=== PATIENT | male | born 1950 | race Caucasian/White ===

== ENCOUNTER 2017-12-05 10:31 | Emergency (ER) | payer MEDICARE, BC ==
[2017-12-05 10:45] VITALS: BP 123/63
--- NOTE | 2017-12-05 10:50 | EDM.PDOC ---
<Sergo King - Last Filed: 12/05/17 10:49> ED HPI GENERAL MEDICAL PROBLEM - General Chief Complaint: Lower Extremity Injury/Pain Stated Complaint: CUT FOOT FELL DOWNSTAIRS AT HOME Time Seen by Provider: 12/05/17 10:49 Source of Information: Reports: Patient, Old Records, RN, RN Notes Reviewed History Limitations: Reports: No Limitations Right 1-Hallux Pain Score (Numeric/FACES): 3 - Related Data Allergies Allergy/AdvReac Type Severity Reaction Status Date / Time No Known Allergies Allergy Verified 12/05/17 10:38 Home Meds: Home Meds ALPRAZolam [Xanax] 1 mg PO TID 08/27/15 [History] traMADol [Ultram] 50 mg PO Q6H PRN 08/27/15 [History] HYDROmorphone/Bupiv/0.9NaCl/PF [Hydromor-Bupiva 10 Mcg-0.0625%] 7.2 mg 12/05/17 [History] Past Medical History - Past Surgical History Other Musculoskeletal Surgeries/Procedures:: has had numerous joint replacements. Has Morphine pump for chronic pain Social & Family History - Tobacco Use Smoking Status *Q: Never Smoker Second Hand Smoke Exposure: No - Alcohol Use Days Per Week of Alcohol Use: 0 - Recreational Drug Use Recreational Drug Use: No Course - Vital Signs Last Recorded V/S: Last Vital Signs Temp 97.6 F 12/05/17 10:39 Pulse 92 12/05/17 10:39 Resp 16 12/05/17 10:39 BP 123/63 12/05/17 10:39 Pulse Ox 97 12/05/17 10:39 - Orders/Labs/Meds Meds: Medications Discontinued Medications Generic Name Dose Route Start Last Admin Trade Name Freq PRN Reason Stop Dose Admin Bacitracin 1 dose 12/05/17 11:07 12/05/17 11:12 Bacitracin Oint 1 Gm TOP 12/05/17 11:08 1 dose ONETIME ONE Administration Cephalexin 500 mg 12/05/17 11:07 12/05/17 11:12 Keflex PO 12/05/17 11:08 500 mg ONETIME ONE Administration Lidocaine HCl 30 ml 12/05/17 11:06 12/05/17 11:12 Xylocaine-Mpf 1% INJECT 12/05/17 11:07 30 ml ONETIME ONE Administration Departure - Departure Disposition: Home, Self-Care 01 Clinical Impression: Laceration of skin - Discharge Information Forms: ED Department Discharge Additional Instructions: Make appointment with Primary Care Provider (Dr. Donato Turner) in 7 - 10 days for removal of sutures. Keep area clean and dry. Does not need to be covered with dressing at night. Take Cephalexin as prescribed <Nehal Lenz - Last Filed: 12/05/17 12:29> ED HPI GENERAL MEDICAL PROBLEM - History of Present Illness INITIAL COMMENTS - FREE TEXT/NARRATIVE: Patient states he slipped on the carpet in his house and fell backward down 6 stairs. He did not lose consciousness or hit his head. He was able to to walk to the bathroom and run water over the cut to clean it. He has not used soap or hydrogen peroxide to clean the cut. He is concerned about infection that could spread to his prosthetic hips and right knee. 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 He has an implanted Hydromorphine pump for pain control. 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 No Diabetes Mellitus. No allergies. Onset: Today Onset Date: 12/05/17 Onset Time: 08:00 ("This morning" ) Location: Reports: Lower Extremity, Right Quality: Reports: Burning (Peripheral neuropathy. 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 Denies: Fever, Weakness Eyes: Reports: No Symptoms, Glasses. Denies: Blindness Ears: Reports: No Symptoms. Denies: Dizziness, Bloody Discharge Nose: Reports: No Symptoms. Denies: Epistaxis Mouth/Throat: Reports: No Symptoms Respiratory: Reports: No Symptoms. Denies: Wheezing, Cough Cardiovascular: Reports: No Symptoms GI/Abdominal: Reports: No Symptoms Genitourinary: Reports: No Symptoms Musculoskeletal: Reports: No Symptoms, Foot Pain, Joint Pain (prior condition; Bilateral hip, right knee replacement) Skin: Reports: No Symptoms Neurological: Reports: No Symptoms, Pre-Existing Deficit (Bilateral burning peripheral neuropathy ). Denies: Dizziness, Headache Psychiatric: Reports: No Symptoms ED EXAM, GENERAL - Physical Exam Exam: See Below Exam Limited By: No Limitations General Appearance: Alert, WD/WN, No Apparent Distress Ears: Normal External Exam, Normal Canal, Hearing Grossly Normal, Normal TMs Ear Exam: Bilateral Ear: Auricle Normal, Canal Normal, TM normal Nose: Normal Inspection Throat/Mouth: No Airway Compromise Head: Atraumatic, Normocephalic Neck: Normal Inspection Respiratory/Chest: No Respiratory Distress, Lungs Clear, Normal Breath Sounds, No Accessory Muscle Use, Chest Non-Tender Cardiovascular: Normal Peripheral Pulses, Regular Rate, Rhythm, No Edema Peripheral Pulses: 2+: Dorsalis Pedis (L), Dorsalis Pedis (R) Extremities: Normal Inspection, No Pedal Edema, Normal Capillary Refill Neurological: Alert, Oriented Psychiatric: Normal Affect Skin Exam: Warm, Dry ED TRAUMA EXTREMITY PROCEDURES - Laceration/Wound Repair Right Lower Medial Distal Foot Lac/Wound Length In cm: 1.5 (J shape flap of skin ) Appearance: Superficial, Mildly Contaminated (sock fuzz ) Distal NVT: Neuro & Vascular Intact Anesthetic Type: Local Local Anesthesia - Lidocaine (Xylocaine): 1% Plain Skin Prep: Isopropyl Alcohol (Alcohol), Saline, Sterile Drape Saline Irrigation (cc's): 10 Exploration/Debridement/Repair: Minimal Debridement Closed With: Sutures Suture Size: 3-0 # of Sutures: 4 Suture Type: Prolene, Simple Drain Placement: No Sterile Dressing Applied: Other (Nehal Lenz MS3) Tetanus Status Addressed: Yes (tetanus up to date per Patient) Departure - Departure Time of Disposition: 12:24 - Problem List & Annotations (1) Laceration of skin SNOMED Code(s): 942555305 Code(s): [id number] - Status: Acute - Problem List Review Problem List Initiated/Reviewed/Updated: Yes - My Orders Last 24 Hours: Cephalexin written prescription Follow up with PCP in 7 - 10 days for suture removal Discharge to home
[2017-12-05] MEDS ORDERED: Lidocaine 1% 30 ML SDV INJECT ONE (11:06)
[2017-12-05] MEDS ORDERED: Bacitracin Oint 1 GM U/D Packet TOP ONE (11:07)
[2017-12-05] MEDS ORDERED: Cephalexin 500 MG Cap PO ONE (11:07)
== END 2017-12-05 12:36 | disposition home or self-care (01) ==
LOC: DL.ED 10:31
DX: S91.111A Laceration without foreign body of right great toe without damage to nail, initial encounter (principal); W10.9XXA Fall (on) (from) unspecified stairs and steps, initial encounter
CPT/HCPCS: 12001; 99283; A9270

== ENCOUNTER → 2019-01-08 | Outpatient (CLI) | payer MEDICARE, BC ==
[2019-01-08 14:50] LABS: ANION GAP 13.3; CHLORIDE,CL 101 mmol/L (101-111); SODIUM,NA 136 mmol/L (135-145)
== END ==
LOC: DL.LAB 11:11
PROVIDERS: ATTEND Internal Medicine Hematology & Oncology
DX: C18.9 Malignant neoplasm of colon, unspecified (principal); D50.9 Iron deficiency anemia, unspecified
CPT/HCPCS: 36415; 80053; 82728; 83540; 83550; 85025

== ENCOUNTER → 2019-02-13 | Outpatient (CLI) | payer MEDICARE, BC | LOC: DL.CLIN 16:15 | PROVIDERS: ATTEND Nurse Practitioner | DX: E78.5 Hyperlipidemia, unspecified (principal) | CPT/HCPCS: 36415; 80061; 99213; G0439 ==

== ENCOUNTER 2020-08-30 20:13 | Emergency (ER) | payer MEDICARE, BC ==
[2020-08-30 20:20] VITALS: BP 155/73
[2020-08-30] MEDS ORDERED: Iopamidol 612 MG/ML 100 ML Bottle IVPUSH ONE (20:30)
[2020-08-30 20:33] VITALS: PULSE 78
[2020-08-30] MEDS ORDERED: HYDROmorphone 1 MG/ML Syringe IVPUSH ONE (21:04)
[2020-08-30 21:07] LABS: ANION GAP 11.8 mEq/L (7-13); CHLORIDE,CL 100 mmol/L (98-107); SODIUM,NA 139 mmol/L (136-145)
--- NOTE | 2020-08-30 21:36 | CT ---
PROCEDURE INFORMATION: Exam: CT Head Without Contrast Exam date and time: 08/30/2020 8:46 PM Age: 70 years old Clinical indication: Other: Pain, fall from ladder to left side TECHNIQUE: Imaging protocol: Computed tomography of the head without contrast. Radiation optimization: All CT scans at this facility use at least one of these dose optimization techniques: automated exposure control; mA and/or kV adjustment per patient size (includes targeted exams where dose is matched to clinical indication); or iterative reconstruction. COMPARISON: No relevant prior studies available. FINDINGS: Brain: No acute hemorrhage. Unremarkable white matter. No mass effect. Cerebral ventricles: No ventriculomegaly. Bones/joints: Unremarkable. No acute fracture. Paranasal sinuses: Visualized sinuses are unremarkable. No fluid levels. Mastoid air cells: Visualized mastoid air cells are well aerated. Soft tissues: Unremarkable. IMPRESSION: No acute intracranial process.
--- NOTE | 2020-08-30 21:37 | CT ---
PROCEDURE INFORMATION: Exam: CT Cervical Spine Without Contrast Exam date and time: 08/30/2020 8:46 PM Age: 70 years old Clinical indication: Other: Pain, fall from ladder to left side TECHNIQUE: Imaging protocol: Computed tomography images of the cervical spine without contrast. Radiation optimization: All CT scans at this facility use at least one of these dose optimization techniques: automated exposure control; mA and/or kV adjustment per patient size (includes targeted exams where dose is matched to clinical indication); or iterative reconstruction. COMPARISON: No relevant prior studies available. FINDINGS: Bones/joints: No acute fracture. Normal alignment. Discs/Spinal canal/Neural foramina: No spinal stenosis. Soft tissues: Unremarkable. Lungs: Lung apices are normal. IMPRESSION: No acute fracture or dislocation.
--- NOTE | 2020-08-30 22:02 | CT ---
PROCEDURE INFORMATION: Exam: CT Lumbar Spine Without Contrast Exam date and time: 08/30/2020 8:46 PM Age: 70 years old Clinical indication: Other: Pain, fall from ladder to left side TECHNIQUE: Imaging protocol: Computed tomography images of the lumbar spine without contrast. Radiation optimization: All CT scans at this facility use at least one of these dose optimization techniques: automated exposure control; mA and/or kV adjustment per patient size (includes targeted exams where dose is matched to clinical indication); or iterative reconstruction. COMPARISON: No relevant prior studies available. FINDINGS: Vertebrae: No acute fracture. Normal alignment. Discs/Spinal canal/Neural foramina: Degenerative changes result in mild central canal stenosis L4-L5. Soft tissues: Unremarkable. IMPRESSION: No acute findings.
--- NOTE | 2020-08-30 22:02 | CT ---
PROCEDURE INFORMATION: Exam: CT Chest With Contrast; Diagnostic Exam date and time: 08/30/2020 8:46 PM Age: 70 years old Clinical indication: Other: Pain, fall from ladder to left side TECHNIQUE: Imaging protocol: Diagnostic computed tomography of the chest with intravenous contrast. Radiation optimization: All CT scans at this facility use at least one of these dose optimization techniques: automated exposure control; mA and/or kV adjustment per patient size (includes targeted exams where dose is matched to clinical indication); or iterative reconstruction. Contrast material: ISOVUE 300; Contrast volume: 100 ml; Contrast route: INTRAVENOUS (IV); COMPARISON: No relevant prior studies available. FINDINGS: Tubes, catheters and devices: Spinal stimulator wire in place. Lungs: Ground-glass as well as more consolidative opacity in the left lower lobe may represent lung contusion and or adjacent atelectasis/infiltrate. There is an approximate 3.6 cm rounded opacity within the left lower lobe with lucencies within. Somewhat thickened wall. Within the medial right lower lobe there is an approximate 2.7 cm rounded opacity with some central lucency. Pleural space: Tiny left pneumothorax. Small left pleural effusion. Heart: Minimal coronary artery calcification. Aorta: Unremarkable. No aortic aneurysm. Lymph nodes: Unremarkable. No enlarged lymph nodes. Bones/joints: Multiple left rib fractures. Acute minimally displaced fractures involving the left 4th 5th 6 and 7th and 8 ribs. Probable old right rib fracture deformities. Soft tissues: Minimal bilateral gynecomastia. IMPRESSION: 1. Multiple displaced left rib fractures including fractures of the left 4th through 8th ribs.. The left 7th rib fracture is markedly comminuted. 2. Associated small left pneumothorax. 3. Patchy consolidation in the left lower lobe may represent contusion and or underlying atelectasis. There are rounded lung opacities within the left lower lobe and right lower lobe which are somewhat thick walled with areas of lucency within. In the setting of trauma, these may possibly represent posttraumatic change/laceration//traumatic pneumatoceles, however the possibility of underlying inflammatory or malignant processes not excluded. Recommend clinical correlation and short-term follow-up imaging to reassess. PROCEDURE INFORMATION: Exam: CT Abdomen And Pelvis With Contrast Exam date and time: 08/30/2020 8:46 PM Age: 70 years old Clinical indication: Other: Pain, fall from ladder to left side TECHNIQUE: Imaging protocol: Computed tomography of the abdomen and pelvis with intravenous contrast. Radiation optimization: All CT scans at this facility use at least one of these dose optimization techniques: automated exposure control; mA and/or kV adjustment per patient size (includes targeted exams where dose is matched to clinical indication); or iterative reconstruction. Contrast material: ISOVUE 300; Contrast volume: 100 ml; Contrast route: INTRAVENOUS (IV); COMPARISON: No relevant prior studies available. FINDINGS: Tubes, catheters and devices: Spinal stimulator wire identified. Liver: Hepatic steatosis. Gallbladder and bile ducts: The gallbladder is distended with an associated gallstone. Pancreas: Normal. No ductal dilation. Spleen: Normal. No splenomegaly. Adrenal glands: Normal. No mass. Kidneys and ureters: Normal. No hydronephrosis. Stomach and bowel: Unremarkable. No obstruction. No mucosal thickening. Appendix: No evidence of appendicitis. Intraperitoneal space: Unremarkable. No free air. No significant fluid collection. Vasculature: Unremarkable. No abdominal aortic aneurysm. Lymph nodes: Unremarkable. No enlarged lymph nodes. Urinary bladder: Moderate bladder wall thickening. Reproductive: Unremarkable as visualized. Bones/joints: Artifact from bilateral hip arthroplasties limits evaluation of the pelvis. Advanced lumbar spondylosis. There appears to be fusion of the L2 and L3 vertebral bodies. Soft tissues: Unremarkable. IMPRESSION: 1. Distended gallbladder with gallstone. 2. Hepatic steatosis. 3. Moderately thickened bladder wall nonspecific. In the appropriate clinical setting could represent cystitis. 4. See above for other details.
--- NOTE | 2020-08-30 22:07 | CT ---
PROCEDURE INFORMATION: Exam: CT Thoracic Spine Without Contrast Exam date and time: 08/30/2020 8:46 PM Age: 70 years old Clinical indication: Other: Pain, fall from ladder to left side TECHNIQUE: Imaging protocol: Computed tomography images of the thoracic spine without contrast. Radiation optimization: All CT scans at this facility use at least one of these dose optimization techniques: automated exposure control; mA and/or kV adjustment per patient size (includes targeted exams where dose is matched to clinical indication); or iterative reconstruction. COMPARISON: No relevant prior studies available. FINDINGS: Vertebrae: No acute fracture in thoracic spine. Mild scoliosis. IMPRESSION: No acute fracture in thoracic spine. Rib fractures and lung parenchymal findings will be described in detail on same-day CT chest report
--- NOTE | 2020-08-30 22:54 | EDM.PDOC ---
ED HPI GENERAL MEDICAL PROBLEM - General Chief Complaint: Back Pain or Injury Stated Complaint: L.R. - AMBULANCE Time Seen by Provider: 08/30/20 20:20 Source of Information: Reports: Patient, EMS History Limitations: Reports: No Limitations - History of Present Illness INITIAL COMMENTS - FREE TEXT/NARRATIVE: ED via [facility], patient standing on 2 step step stool changing light bulb, lost balance fell landing on left side. C/o pain to Left lateral mid ribs. Denies loss of consciousness, No neck pain no numbness. Pain with deep breathing. or movement to rib area. Hx chronic back pain with pain pump. No change in character of pain in back. Initially c/o pain to left hip to EMS. Denies at present, moving upper and lower extremities. Non weight bearing after fall. Not on blood thinner GCS 15 Generalized Pain Score (Numeric/FACES): 8 - Related Data Allergies Allergy/AdvReac Type Severity Reaction Status Date / Time No Known Allergies Allergy Verified 08/30/20 20:24 Home Meds: Home Meds ALPRAZolam [Xanax] 1 mg PO TID 08/27/15 [History] traMADol [Ultram] 50 mg PO Q6H PRN 08/27/15 [History] HYDROmorphone/Bupiv/0.9NaCl/PF [Hydromor-Bupiva 10 Mcg-0.0625%] 7.2 mg 12/05/17 [History] Past Medical History HEENT History: Reports: Hard of Hearing, Impaired Vision Cardiovascular History: Reports: None Respiratory History: Reports: None Gastrointestinal History: Reports: None Genitourinary History: Reports: Other (See Below) Other Genitourinary History: self cath Musculoskeletal History: Reports: Other (See Below) Other Musculoskeletal History: ambulate with cane Neurological History: Reports: None Psychiatric History: Reports: Anxiety Endocrine/Metabolic History: Reports: None Hematologic History: Reports: B12 Deficiency Immunologic History: Reports: None Oncologic (Cancer) History: Reports: Colon Dermatologic History: Reports: None - Past Surgical History HEENT Surgical History: Reports: None Cardiovascular Surgical History: Reports: None Respiratory Surgical History: Reports: None GI Surgical History: Reports: Colonoscopy, Other (See Below) Other GI Surgeries/Procedures: Intrathecal pain pump Male Surgical History: Reports: None Neurological Surgical History: Reports: None Musculoskeletal Surgical History: Reports: Hip Replacement, Knee Replacement Other Musculoskeletal Surgeries/Procedures:: has had numerous joint replacements. Has dilaudid pump for chronic pain Social & Family History - Family History Family Medical History: No Pertinent Family History - Tobacco Use Tobacco Use Status *Q: Unknown Ever Used Tobacco - Caffeine Use Caffeine Use: Reports: Coffee - Recreational Drug Use Recreational Drug Use: No ED ROS GENERAL - Review of Systems Review Of Systems: Comprehensive ROS is negative, except as noted in HPI. Constitutional: Reports: No Symptoms HEENT: Reports: No Symptoms Respiratory: Reports: Pleuritic Chest Pain Cardiovascular: Denies: No Symptoms GI/Abdominal: Reports: No Symptoms : Reports: Urinary Retention (chronic, self cath 5-6 times/ 24 hours) ED EXAM,LOWER BACK PAIN/INJURY - Physical Exam Exam: See Below Exam Limited By: No Limitations General Appearance: Alert, Moderate Distress (left rib pain with movment) Eye Exam: Bilateral Eye: EOMI, PERRL (3mm) Ears: Normal External Exam, Normal TMs Nose: Normal Inspection Throat/Mouth: Normal Inspection, Normal Lips, Normal Voice Head: Atraumatic, Normocephalic Neck: Normal Inspection, Full Range of Motion, Tender Lateral. No: Tender Midline Respiratory/Chest: No Respiratory Distress, Decreased Breath Sounds (left lower), Splinting. No: Chest Non-Tender (left lateral) Cardiovascular: Normal Peripheral Pulses, Regular Rate, Rhythm GI/Abdominal: Normal Bowel Sounds, Soft, No Distention, Pelvis Stable. No: Distended, Guarding, Rebound, Tender, Abnormal Bowel Sounds Back Exam: Paraspinal Tenderness (left lateral). No: Vertebral Tenderness Extremities: Normal Inspection, No Pedal Edema (1+) Neurological: Alert, Normal Mood/Affect, Normal Dorsiflexion, No Motor/Sensory Deficits, Oriented x 3 Psychiatric: Normal Affect, Normal Mood Skin Exam: Warm, Dry, Rash (anterior neck line red raised), Other (quarter size abrasion left elbow abrasion left back) Course - Vital Signs Last Recorded V/S: Last Vital Signs Temp 97.7 F 08/30/20 20:30 Pulse 78 08/30/20 20:30 Resp 18 08/30/20 20:30 BP 155/73 H 08/30/20 20:30 Pulse Ox 94 L 08/30/20 20:30 - Orders/Labs/Meds Orders: Active Orders 24 hr Category Date Time Status Insert Urinary Catheter [OM.PC] Stat Care 08/30/20 22:58 Ordered CULTURE URINE [RM] Stat Lab 08/30/20 23:16 Received Labs: Laboratory Tests 08/30/20 08/30/20 08/30/20 Range/Units 20:32 20:32 22:35 WBC 5.2 (5.0-10.0) 10^3/uL RBC 4.46 L (4.6-6.2) 10^6/uL Hgb 14.3 (14.0-18.0) g/dL Hct 42.6 (40.0-54.0) % MCV 95.5 (80-100) fL MCH 32.1 (27.0-34.0) pg MCHC 33.6 (33.0-35.0) g/dL Plt Count 149 L (150-450) 10^3/uL Neut % (Auto) 64.9 (42.2-75.2) % Lymph % (Auto) 23.4 (20.5-50.1) % [place] % (Auto) 10.9 H (2-8) % Eos % (Auto) 0.6 L (1.0-3.0) % Baso % (Auto) 0.2 (0.0-1.0) % Sodium 139 (136-145) mmol/L Potassium 3.8 (3.5-5.1) mmol/L Chloride 100 (98-107) mmol/L Carbon Dioxide 31 (21-32) mmol/L Anion Gap 11.8 (7-13) mEq/L BUN 9 (7-18) mg/dL Creatinine 0.81 (0.70-1.30) mg/dL Est Cr Clr Drug Dosing 87.62 mL/min Estimated GFR (MDRD) > 60 BUN/Creatinine Ratio 11.1 (No establ ref range) Glucose 95 (74-99) mg/dL Calcium 8.9 (8.5-10.1) mg/dL Total Bilirubin 0.5 (0.2-1.0) mg/dL AST 31 (15-37) U/L ALT 28 (16-63) U/L Alkaline Phosphatase 90 (46-116) U/L Troponin I < 0.017 (0.000-0.056) ng/mL Total Protein 7.0 (6.4-8.2) g/dL Albumin 4.2 (3.4-5.0) g/dL Globulin 2.8 Albumin/Globulin Ratio 1.5 Urine Color (YELLOW) Urine Appearance (CLEAR) Urine pH (5.0-9.0) Ur Specific [place] (1.005-1.030) Urine Protein (NEGATIVE) Urine Glucose (UA) (NEGATIVE) Urine Ketones (NEGATIVE) Urine Occult Blood (NEGATIVE) Urine Nitrite (NEGATIVE) Urine Bilirubin (NEGATIVE) Urine Urobilinogen (0.2-1.0) mg/dL Ur Leukocyte Esterase (NEGATIVE) Urine RBC /HPF Urine WBC (0-5/HPF) /HPF Ur Epithelial Cells (NOT SEEN) /HPF Amorphous Sediment (NOT SEEN) /HPF Urine Bacteria (0-FEW/HPF) /HPF Urine Mucus (NOT SEEN) /LPF SARS-CoV-2 RNA (LYNDSEY) Negative (NEGATIVE) 08/30/20 Range/Units 23:16 WBC (5.0-10.0) 10^3/uL RBC (4.6-6.2) 10^6/uL Hgb (14.0-18.0) g/dL Hct (40.0-54.0) % MCV (80-100) fL MCH (27.0-34.0) pg MCHC (33.0-35.0) g/dL Plt Count (150-450) 10^3/uL Neut % (Auto) (42.2-75.2) % Lymph % (Auto) (20.5-50.1) % [place] % (Auto) (2-8) % Eos % (Auto) (1.0-3.0) % Baso % (Auto) (0.0-1.0) % Sodium (136-145) mmol/L Potassium (3.5-5.1) mmol/L Chloride (98-107) mmol/L Carbon Dioxide (21-32) mmol/L Anion Gap (7-13) mEq/L BUN (7-18) mg/dL Creatinine (0.70-1.30) mg/dL Est Cr Clr Drug Dosing mL/min Estimated GFR (MDRD) BUN/Creatinine Ratio (No establ ref range) Glucose (74-99) mg/dL Calcium (8.5-10.1) mg/dL Total Bilirubin (0.2-1.0) mg/dL AST (15-37) U/L ALT (16-63) U/L Alkaline Phosphatase (46-116) U/L Troponin I (0.000-0.056) ng/mL Total Protein (6.4-8.2) g/dL Albumin (3.4-5.0) g/dL Globulin Albumin/Globulin Ratio Urine Color Yellow (YELLOW) Urine Appearance Slightly cloudy (CLEAR) Urine pH 6.5 (5.0-9.0) Ur Specific [place] 1.025 (1.005-1.030) Urine Protein Negative (NEGATIVE) Urine Glucose (UA) Negative (NEGATIVE) Urine Ketones Negative (NEGATIVE) Urine Occult Blood Trace-intact H (NEGATIVE) Urine Nitrite Positive H (NEGATIVE) Urine Bilirubin Negative (NEGATIVE) Urine Urobilinogen 0.2 (0.2-1.0) mg/dL Ur Leukocyte Esterase Small H (NEGATIVE) Urine RBC 0-5 /HPF Urine WBC 20-30 H (0-5/HPF) /HPF Ur Epithelial Cells Rare (NOT SEEN) /HPF Amorphous Sediment Moderate (NOT SEEN) /HPF Urine Bacteria Few (0-FEW/HPF) /HPF Urine Mucus Few H (NOT SEEN) /LPF SARS-CoV-2 RNA (LYNDSEY) (NEGATIVE) Meds: Medications Discontinued Medications Generic Name Dose Route Start Last Admin Trade Name Freq PRN Reason Stop Dose Admin Hydromorphone HCl 1 mg 08/30/20 21:04 08/30/20 22:48 Dilaudid IVPUSH 08/30/20 21:05 1 mg ONETIME ONE Administration Iopamidol 100 ml 08/30/20 20:30 08/30/20 21:00 Isovue-300 (61%) IVPUSH 08/30/20 20:31 100 ml ONETIME ONE Administration - Re-Assessments/Exams Free Text/Narrative Re-Assessment/Exam: 08/30/20 22:[address] King, [facility] Hospitalist, recommend tx to Alt r/t risk for decompensati on with multiple rib fractures. Dr Bird Alegre ED accepting patient in tx. aware. Vitals stable. Saturation maintained 93-98 % . remains alert oriented. GCS 15 on transfer. 08/31/20 02:43 Departure - Departure Time of Disposition: 23:25 Disposition: DC/Tfer to Acute Hospital 02 Condition: Fair Clinical Impression: Multiple fractures of ribs, left side, initial encounter for closed fracture, H/O urinary retention Fall in home Qualifiers: Encounter type: initial encounter Qualified Code(s): W19.XXXA - Unspecified fall, initial encounter; Y92.009 - Unspecified place in unspecified non- institutional (private) residence as the place of occurrence of the external cause Chronic low back pain Qualifiers: Back pain laterality: unspecified Sciatica presence: without sciatica Qualified Code(s): M54.5 - Low back pain; G89.29 - Other chronic pain - Discharge Information *PRESCRIPTION DRUG MONITORING PROGRAM REVIEWED*: No *COPY OF PRESCRIPTION DRUG MONITORING REPORT IN PATIENT ELKE: No Forms: ED Department Discharge Sepsis Event Note (ED) - Evaluation Sepsis Screening Result: No Definite Risk - Focused Exam Vital Signs: Vital Signs Temp Pulse Resp BP Pulse Ox 08/30/20 20:30 97.7 F 78 18 155/73 H 94 L 08/30/20 20:18 97.7 F 75 18 155/73 H 95 - My Orders Last 24 Hours: My Active Orders 08/30/20 22:58 Insert Urinary Catheter [OM.PC] Stat 08/30/20 23:16 CULTURE URINE [RM] Stat - Assessment/Plan Last 24 Hours: My Active Orders 08/30/20 22:58 Insert Urinary Catheter [OM.PC] Stat 08/30/20 23:16 CULTURE URINE [RM] Stat
== END 2020-08-30 23:21 ==
LOC: DL.ED 20:13
DX: S22.42XA Multiple fractures of ribs, left side, initial encounter for closed fracture (principal); S50.312A Abrasion of left elbow, initial encounter; G89.29 Other chronic pain; M54.5 Low back pain; F41.9 Anxiety disorder, unspecified; Z20.828 Contact with and (suspected) exposure to other viral communicable diseases; Z79.899 Other long term (current) drug therapy; W08.XXXA Fall from other furniture, initial encounter; Y92.009 Unspecified place in unspecified non-institutional (private) residence as the place of occurrence of the external cause
CPT/HCPCS: 36415; 70450; 71260; 72125; 72128; 72131; 74177; 80053; 81001; 84484; 85025; 87086; 96374; 99285; J1170; Q9967; U0002; 87088; 87186

== ENCOUNTER 2020-11-17 06:54 | Day surgery (SDC) | payer MEDICARE, BC ==
[~2020-11-17 06:54] MED LIST: Midazolam 1 MG/ML 2 ML SDV ONE; fentaNYL 100 MCG/2 ML SDV ONE
[2020-11-17] MEDS ORDERED: fentaNYL 100 MCG/2 ML SDV IV ONE ×3 (06:55→07:57)
[2020-11-17] MEDS ORDERED: Midazolam 1 MG/ML 2 ML SDV IV ONE ×11 (06:55→08:05)
[2020-11-17] MEDS ORDERED: Dextrose 5%-0.45% NaCl 1,000 ML IV SCH (07:00)
[2020-11-17 10:20] VITALS: BP 142/87; PULSE 76
--- NOTE | 2020-11-17 13:56 | OR ---
DATE: 11/17/2020 PREOPERATIVE DIAGNOSIS: Personal history of prior colon cancer. POSTOPERATIVE DIAGNOSIS: Personal history of prior colon cancer. PROCEDURE: Attempted colonoscopy, inadequate bowel prep. ANESTHESIA: Conscious sedation with IV Versed and fentanyl. SPECIMEN: None. INDICATION FOR PROCEDURE: This 70-year-old male has had a prior colon cancer by record. I think this is on the right side. He is here for a followup colonoscopy. DESCRIPTION OF PROCEDURE: After adequate preparation, a colonoscope was inserted into the rectum. This encountered a moderate amount of fluid with still much in the way of small chunks that continuously plugged the suction device on the scope. I was able to advance the scope a fair distance and I think over to at least the hepatic flexure; however, I could not advance the scope past this portion to see the anastomosis of the prior surgery and the patient was very uncomfortable with sedation, which I had added. This was an inadequate examination anyway secondary to the retained prep. My recommendation is to redo the bowel prep and do the colonoscopy with anesthesia MAC, have a better control of this. The scope was removed and the patient taken to recovery room. [facility] /[id number]
[2020-11-18] MEDS ORDERED: Dextrose 5%-0.45% NaCl 1,000 ML IV SCH (07:00)
== END 2020-11-17 09:55 | disposition home or self-care (01) ==
LOC: DL.ENDO 06:54
PROVIDERS: ATTEND Surgery
DX: Z12.11 Encounter for screening for malignant neoplasm of colon (principal); G89.29 Other chronic pain; M54.5 Low back pain; E66.9 Obesity, unspecified; Z68.35 Body mass index [BMI] 35.0-35.9, adult; Z01.812 Encounter for preprocedural laboratory examination; Z20.822 Contact with and (suspected) exposure to COVID-19; Z85.038 Personal history of other malignant neoplasm of large intestine; Z79.899 Other long term (current) drug therapy; Z98.890 Other specified postprocedural states
CPT/HCPCS: G0105; J2250; J3010; J7042; U0002

== ENCOUNTER 2021-05-18 12:36 | Emergency (ER) | payer MEDICARE, BC | END 2021-05-18 12:45 | disposition left against medical advice (07) | LOC: DL.ED 12:36 | DX: Z53.21 Procedure and treatment not carried out due to patient leaving prior to being seen by health care provider (principal) ==

== ENCOUNTER 2023-10-01 14:10 | Emergency (ER) | payer MEDICARE, BC | END 2023-10-01 15:14 | disposition home or self-care (01) | LOC: DL.ED 14:10 | DX: M96.830 Postprocedural hemorrhage of a musculoskeletal structure following a musculoskeletal system procedure (principal); Z79.899 Other long term (current) drug therapy | CPT/HCPCS: 99283 ==

== ENCOUNTER 2023-10-06 21:12 | Emergency (ER) | payer MEDICARE, BC ==
[2023-10-06] MEDS ORDERED: Sodium Chloride 0.9% 10 ML Syringe FLUSH PRN (21:24)
[2023-10-06 21:53] LABS: BASOPHILS PERCENT AUTO 0.5 % (0.0-1.0); EOSINOPHILS PERCENT AUTO 1.6 % (1.0-3.0); HEMATOCRIT 38.3 % (40.0-54.0); HEMOGLOBIN 12.4 g/dL (14.0-18.0); LYMPHOCYTES PERCENT AUTO 24.2 % (20.5-50.1); MEAN CORPUSCULAR HEMOGLOBIN 34.3 pg (27.0-34.0); MEAN CORPUSCULAR HGB CONC 32.4 g/dL (33.0-35.0); MEAN CORPUSCULAR VOLUME 105.8 fL (80-100); MONOCYTES PERCENT AUTO 13.5 % (2-8); NEUTROPHILS PERCENT AUTO 60.2 % (42.2-75.2); PLATELET COUNT,PLT 356 10^3/uL (150-450); RED BLOOD CELL COUNT 3.62 10^6/uL (4.6-6.2); WHITE BLOOD CELL COUNT,WBC 5.5 10^3/uL (5.0-10.0)
[2023-10-06 22:12] LABS: PROTHROMBIN TIME 9.9 SEC (9.0-12.0)
[2023-10-06 22:13] LABS: ALANINE AMINOTRANSFERASE,ALT 32 U/L (16-63); ALBUMIN 3.7 g/dL (3.4-5.0); ALKALINE PHOSPHATASE 94 U/L (46-116); ANION GAP 11.6 mEq/L (7-13); ASPARTATE AMNIOTRANSFERASE,AST 32 U/L (15-37); BILIRUBIN TOTAL 0.5 mg/dL (0.2-1.0); BLOOD UREA NITROGEN,BUN 11 mg/dL (7-18); BUN/CREATININE RATIO 14.9 (No establ ref range); C-REACTIVE PROTEIN 0.89 ng/dL (<=0.50); CALCIUM 8.9 mg/dL (8.5-10.1); CARBON DIOXIDE,CO2 33 mmol/L (21-32); CHLORIDE,CL 99 mmol/L (98-107); CREATININE 0.74 mg/dL (0.70-1.30); EST CRCL DRUG DOSING (CG) 88.91 mL/min; GLUCOSE RANDOM 91 mg/dL (70-99); POTASSIUM,K 3.6 mmol/L (3.5-5.1); PROTEIN TOTAL,TP 7.5 g/dL (6.4-8.2); SODIUM,NA 140 mmol/L (136-145)
[2023-10-06 22:15] LABS: LACTIC ACID 1.3 mmol/L (0.4-2.0)
[2023-10-06 22:32] LABS: ESTIMATED GFR 96 mL/min (>=60)
[2023-10-06] MEDS ORDERED: Iopamidol 612 MG/ML 100 ML Bottle IVPUSH ONE (22:38)
[2023-10-07] MEDS ORDERED: Sulfamethoxazole/Trimethoprim 800-160 MG Tab PO ONE (02:34)
== END 2023-10-07 02:45 | disposition home or self-care (01) ==
LOC: DL.ED 21:12
DX: T81.40XA Infection following a procedure, unspecified, initial encounter (principal); L03.111 Cellulitis of right axilla; Z79.899 Other long term (current) drug therapy
CPT/HCPCS: 36415; 73202-RT; 80053; 83605; 84145; 85025; 85610; 85730; 86140; 87040; 99284; A9270-GY; J3490; Q9967

== ENCOUNTER 2024-02-24 03:08 | Observation (INO) | payer MEDICARE, BC ==
[2024-02-24 03:47] LABS: BASOPHILS PERCENT AUTO 0.2 % (0.0-1.0); EOSINOPHILS PERCENT AUTO 1.5 % (1.0-3.0); HEMATOCRIT 37.5 % (40.0-54.0); HEMOGLOBIN 12.4 g/dL (14.0-18.0); LYMPHOCYTES PERCENT AUTO 26.6 % (20.5-50.1); MEAN CORPUSCULAR HEMOGLOBIN 34.4 pg (27.0-34.0); MEAN CORPUSCULAR HGB CONC 33.1 g/dL (33.0-35.0); MEAN CORPUSCULAR VOLUME 104.2 fL (80-100); MONOCYTES PERCENT AUTO 14.9 % (2-8); NEUTROPHILS PERCENT AUTO 56.8 % (42.2-75.2); PLATELET COUNT,PLT 293 10^3/uL (150-450); WHITE BLOOD CELL COUNT,WBC 5.4 10^3/uL (5.0-10.0)
[2024-02-24 03:48] LABS: APPEARANCE,URINE CLEAR (CLEAR); BILIRUBIN,URINE NEGATIVE (NEGATIVE); COLOR,URINE YELLOW (YELLOW); GLUCOSE,URINE NEGATIVE (NEGATIVE); KETONES,URINE NEGATIVE (NEGATIVE); LEUKOCYTE ESTERASE,URINE SMALL (NEGATIVE); NITRITE,URINE POSITIVE (NEGATIVE); OCCULT BLOOD,URINE NEGATIVE (NEGATIVE); PROTEIN,URINE NEGATIVE (NEGATIVE); UROBILINOGEN,URINE 0.2 mg/dL (0.2-1.0)
[2024-02-24 03:59] LABS: BACTERIA,URINE MANY /HPF (0-FEW/HPF); EPITHELIAL CELLS,URINE OCCASIONAL /HPF (NOT SEEN); RBC,URINE 0-5 /HPF (0-5)
[2024-02-24 04:06] LABS: A/G RATIO 1.1; ALANINE AMINOTRANSFERASE,ALT 23 U/L (16-63); ALBUMIN 3.6 g/dL (3.4-5.0); ALKALINE PHOSPHATASE 84 U/L (46-116); ANION GAP 11.2 mEq/L (7-13); ASPARTATE AMNIOTRANSFERASE,AST 24 U/L (15-37); BILIRUBIN TOTAL 0.4 mg/dL (0.2-1.0); BLOOD UREA NITROGEN,BUN 14 mg/dL (7-18); BUN/CREATININE RATIO 18.4 (No establ ref range); CALCIUM 8.8 mg/dL (8.5-10.1); CARBON DIOXIDE,CO2 31 mmol/L (21-32); CHLORIDE,CL 101 mmol/L (98-107); CREATININE 0.76 mg/dL (0.70-1.30); GLUCOSE RANDOM 106 mg/dL (70-99); POTASSIUM,K 4.2 mmol/L (3.5-5.1); SODIUM,NA 139 mmol/L (136-145)
[2024-02-24 04:07] LABS: ESTIMATED GFR 94 mL/min (>=60)
[2024-02-24] MEDS: fentaNYL 100 MCG/2 ML SDV IVPUSH ONE (05:17)
[2024-02-24] MEDS: Furosemide 20 MG Tab PO ONE (07:21)
[2024-02-24] MEDS: Famotidine 20 MG Tab PO SCH (08:17)
[2024-02-24] MEDS: Pregabalin 75 MG Cap PO SCH (08:17)
[2024-02-24] MEDS: traMADol 50 MG Tab PO PRN (09:18)
[2024-02-24] MEDS ORDERED: Non-Formulary Medication 1 Each (Alprazolam [Xanax] 1 MG Tablet) PO PRN (13:35)
[2024-02-24] MEDS ORDERED: Bisacodyl 10 MG Supp RECTAL PRN (13:35)
[2024-02-24] MEDS ORDERED: traMADol 50 MG Tab PO PRN (13:35)
[2024-02-24] MEDS ORDERED: [UNRECOGNIZED DRUG - OTHER] INJECT SCH (13:45)
[2024-02-24] MEDS ORDERED: BUPIV INJECT SCH (13:45)
[2024-02-24] MEDS ORDERED: HYDROMORPHONE INJECT SCH (13:45)
[2024-02-24] MEDS ORDERED: Albuterol/Ipratropium 3.0-0.5 MG/3 ML Neb Soln NEB PRN (13:55)
[2024-02-24] MEDS ORDERED: Ondansetron 4 MG/2 ML SDV IVPUSH PRN (13:55)
[2024-02-24] MEDS ORDERED: Magnesium Hydroxide 400 MG/5 ML Susp 30 ML Cup PO PRN (13:55)
[2024-02-24] MEDS ORDERED: Polyethylene Glycol 3350 Powder 17 GM Packet PO PRN (13:55)
[2024-02-24] MEDS ORDERED: Sennosides/Docusate Sodium 50-8.6 MG Tab PO PRN (13:55)
[2024-02-24] MEDS: ALPRAZolam 0.5 MG Tab PO PRN (13:58)
[2024-02-24] MEDS ORDERED: Naloxone 2 MG/2 ML Syringe IVPUSH PRN (13:58)
[2024-02-24] MEDS ORDERED: Non-Formulary Medication 1 Each (Pregabalin [Pregabalin] 75 MG Capsule) PO SCH (14:00)
[2024-02-24] MEDS ORDERED: Flumazenil 0.1 MG/ML 5 ML MDV IVPUSH PRN (14:03)
[2024-02-24] MEDS: cefTRIAXone 2 GM Vial IVPUSH ONE (14:26)
[2024-02-24] MEDS: fentaNYL 50 MCG/HR Transdermal Patch TRDERM SCH (14:26)
[2024-02-24] MEDS ORDERED: Famotidine 20 MG Tab PO SCH (21:00)
[2024-02-24] MEDS: Cyclobenzaprine 10 MG Tab PO PRN (23:25)
[2024-02-25] MEDS: fentaNYL 100 MCG/2 ML SDV IVPUSH ONE ×3 (01:16→17:30)
[2024-02-25] MEDS: Levothyroxine 75 MCG Tab PO SCH (05:00)
[2024-02-25 06:25] LABS: BASOPHILS PERCENT AUTO 0.1 % (0.0-1.0); EOSINOPHILS PERCENT AUTO 0.5 % (1.0-3.0); HEMATOCRIT 39.2 % (40.0-54.0); HEMOGLOBIN 12.8 g/dL (14.0-18.0); LYMPHOCYTES PERCENT AUTO 13.4 % (20.5-50.1); MEAN CORPUSCULAR HEMOGLOBIN 34.4 pg (27.0-34.0); MEAN CORPUSCULAR HGB CONC 32.7 g/dL (33.0-35.0); MEAN CORPUSCULAR VOLUME 105.4 fL (80-100); MONOCYTES PERCENT AUTO 12.7 % (2-8); NEUTROPHILS PERCENT AUTO 73.3 % (42.2-75.2); PLATELET COUNT,PLT 270 10^3/uL (150-450); RED BLOOD CELL COUNT 3.72 10^6/uL (4.6-6.2); WHITE BLOOD CELL COUNT,WBC 8.3 10^3/uL (5.0-10.0)
[2024-02-25 07:06] LABS: ALBUMIN 3.4 g/dL (3.4-5.0); ANION GAP 10.2 mEq/L (7-13); BILIRUBIN TOTAL 0.6 mg/dL (0.2-1.0); BUN/CREATININE RATIO 21.9 (No establ ref range); CALCIUM 8.7 mg/dL (8.5-10.1); CREATININE 0.64 mg/dL (0.70-1.30); EST CRCL DRUG DOSING (CG) 101.26 mL/min; MAGNESIUM 1.9 mg/dL (1.8-2.4); POTASSIUM,K 4.2 mmol/L (3.5-5.1); PROTEIN TOTAL,TP 6.7 g/dL (6.4-8.2)
[2024-02-25 07:16] LABS: PROTHROMBIN TIME 10.4 SEC (9.0-12.0); PTT,PARTIAL THROMBOPLSTIN TIME 28.8 SEC (22.0-34.0)
[2024-02-25] MEDS: Dextrose 5%-0.9% NaCl 1,000 ML IV SCH (07:18)
[2024-02-25] MEDS: fentaNYL 100 MCG/2 ML SDV IVPUSH PRN (07:56)
[2024-02-25] MEDS: Multivitamin Tab PO SCH (09:11)
[2024-02-25] MEDS: Enoxaparin 40 MG/0.4 ML Syringe SUBCUT SCH (09:12)
[2024-02-25] MEDS: cefTRIAXone 1 GM Vial IVPUSH ONE (09:12)
[2024-02-26] MEDS ORDERED: cefTRIAXone 1 GM Vial IVPUSH SCH (09:00)
== END 2024-02-25 17:22 ==
LOC: DL.ED 03:08 → DL.MS 12:40 → DL.ED 12:50
PROVIDERS: ADMIT Internal Medicine; ATTEND Internal Medicine
DX: S72.444A Nondisplaced fracture of lower epiphysis (separation) of right femur, initial encounter for closed fracture (principal); R33.9 Retention of urine, unspecified; G89.29 Other chronic pain; D53.9 Nutritional anemia, unspecified; R53.1 Weakness; E78.5 Hyperlipidemia, unspecified; E66.9 Obesity, unspecified; Z79.890 Hormone replacement therapy; Z98.890 Other specified postprocedural states; Z79.899 Other long term (current) drug therapy; Z68.30 Body mass index [BMI] 30.0-30.9, adult; W19.XXXA Unspecified fall, initial encounter
CPT/HCPCS: 36415; 51702; 70450; 73560-RT; 80053; 81001; 83735; 85025; 85610; 85730; 87086; 87088; 87186; 96372; 96374; 96375; 96376; 99223; 99238; 99283; 99285-25; A9270-GY; C1758; G0378; J0696; J1650; J3010; J7042